=== PATIENT | female | born 2000 | race African-American/Black ===

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

== ENCOUNTER 2023-01-19 18:31 | Emergency (ER) | payer MEDICAID, OTHER ==
[~2023-01-19] VITALS: Ht 167.6 cm; Wt 66.0 kg
[~2023-01-19 18:31] MED LIST: ALBU6.7H3 IH
[2023-01-19 18:38] VITALS: BP 136/75; O2SAT 100
[2023-01-19] MEDS ORDERED: ACETAMINOPHEN 325MG TABLET PO ONE (21:00)
[2023-01-19] MEDS ORDERED: IBUP-2029 MT (21:25)
[2023-01-19 22:16] VITALS: PULSE 91; RESP 18; TEMP 98.3
== END 2023-01-19 22:15 | disposition home or self-care (01) ==
LOC: ER 21:17
DX: S93.602A Unspecified sprain of left foot, initial encounter (principal); J45.909 Unspecified asthma, uncomplicated; V99.XXXA Unspecified transport accident, initial encounter; Y93.89 Activity, other specified; Y92.89 Other specified places as the place of occurrence of the external cause; Y99.8 Other external cause status
CPT/HCPCS: 81025; 73610; 73630; 99284; Z7610

== ENCOUNTER 2023-01-20 11:14 | Emergency (ER) | payer MEDICAID ==
[~2023-01-20] VITALS: Ht 167.6 cm; Wt 63.0 kg
[~2023-01-20 11:14] MED LIST changes: +IBUP-2029 MT
[2023-01-20 11:28] VITALS: BP 126/77; RESP 20; TEMP 98.3; O2SAT 100
[2023-01-20 11:30] VITALS: PULSE 96
== END 2023-01-20 11:45 | disposition home or self-care (01) ==
LOC: ER 11:40
DX: S93.602A Unspecified sprain of left foot, initial encounter (principal); F12.10 Cannabis abuse, uncomplicated; V99.XXXA Unspecified transport accident, initial encounter; Y93.89 Activity, other specified; Y92.89 Other specified places as the place of occurrence of the external cause; Y99.8 Other external cause status
CPT/HCPCS: 99281